=== PATIENT | female | born 2000 | race African-American/Black ===

== ENCOUNTER 2020-08-09 03:11 | Emergency (ER) | payer OTHER, BC ==
[~2020-08-09] VITALS: Ht 157.5 cm; Wt 84.1 kg
[2020-08-09] MEDS ORDERED: PANT40TA29 PO (03:30)
[2020-08-09 05:47] LABS: CHLAMYDIA DNA AMPLIFICATION NEGATIVE (NEGATIVE); GC DNA AMPLIFICATION NEGATIVE (NEGATIVE)
[2020-08-09 06:11] VITALS: BP 133/88
[2020-08-09] MEDS ORDERED: FLAG500T PO (06:14)
[2020-08-09] MEDS ORDERED: metroNIDAZOLE (FLAGYL) 500MG TABLET PO ONE (06:15)
== END 2020-08-09 06:30 | disposition home or self-care (01) ==
LOC: M ED 03:11
DX: A59.9 Trichomoniasis, unspecified (principal); F12.20 Cannabis dependence, uncomplicated; K58.9 Irritable bowel syndrome, unspecified; F41.9 Anxiety disorder, unspecified; Z79.899 Other long term (current) drug therapy